=== PATIENT | female | born 1980 | race Caucasian/White ===

== ENCOUNTER 2023-07-23 07:32 | Outpatient (CLI) | payer BC | END 2023-07-23 07:33 | disposition home or self-care (01) | LOC: SCSMRI 07:32 | PROVIDERS: ATTEND Neurological Surgery | DX: M54.2 Cervicalgia (principal); M54.16 Radiculopathy, lumbar region; M47.812 Spondylosis without myelopathy or radiculopathy, cervical region; M47.816 Spondylosis without myelopathy or radiculopathy, lumbar region; M47.817 Spondylosis without myelopathy or radiculopathy, lumbosacral region | CPT/HCPCS: 72141; 72148 ==